=== PATIENT | female | born 1960 | race Caucasian/White ===

== ENCOUNTER 2021-06-02 16:53 | Emergency (ER) | payer MEDICARE ==
[~2021-06-02] VITALS: Ht 167.6 cm; Wt 65.0 kg
[2021-06-02] MEDS ORDERED: KETOROLAC 60MG/2ML VIAL IM ONE (18:30)
[2021-06-02] MEDS ORDERED: IBUP-2028 MT (18:36)
[2021-06-02 19:15] LABS: CLARITY URINE CLOUDY (CLEAR); COLOR URINE YELLOW (YELLOW); KETONES URINE NEGATIVE (NEGATIVE); LEUKOCYTE ESTERASE URINE 3+ (NEGATIVE); NITRITE URINE NEGATIVE (NEGATIVE); OCCULT BLOOD URINE NEGATIVE (NEGATIVE); PROTEIN URINE NEGATIVE (NEGATIVE); SPECIFIC GRAVITY URINE 1.017 (1.005-1.030); UROBILINOGEN URINE 0.2 E.U./dL (0.2-1.0)
[2021-06-02] MEDS ORDERED: CEPH500C2 MT (19:36)
[2021-06-02 19:54] VITALS: BP 132/88
== END 2021-06-02 19:56 | disposition home or self-care (01) ==
LOC: ER 16:53
DX: N39.0 Urinary tract infection, site not specified (principal); G62.9 Polyneuropathy, unspecified; M54.5 Low back pain
CPT/HCPCS: 72100; 81003; 82962; 93970; 96372; 99285; J1885

== ENCOUNTER 2022-12-05 14:21 | Emergency (ER) | payer MEDICARE, MEDICAID ==
[~2022-12-05] VITALS: Ht 162.6 cm; Wt 67.0 kg
[~2022-12-05 14:21] MED LIST: CEPH500C2 MT; IBUP-2028 MT
[2022-12-05 15:45] VITALS: BP 111/75
[2022-12-05] MEDS ORDERED: IBUPROFEN 600MG TABLET PO ONE (15:45)
[2022-12-05] MEDS ORDERED: CYCL10TA21 MT (16:33)
[2022-12-05] MEDS ORDERED: IBUP-2029 MT (16:33)
== END 2022-12-05 16:55 | disposition home or self-care (01) ==
LOC: ER 14:21
DX: R07.89 Other chest pain (principal); Z98.890 Other specified postprocedural states
CPT/HCPCS: 71046; 93005; 99283

== ENCOUNTER 2023-02-13 02:11 | Emergency (ER) | payer MEDICARE, MEDICAID ==
[~2023-02-13] VITALS: Ht 162.6 cm; Wt 64.0 kg
[~2023-02-13 02:11] MED LIST changes: +CYCL10TA21 MT; +IBUP-2029 MT
[2023-02-13] MEDS ORDERED: SODIUM CHLORIDE 0.9% 1,000 ML IV ONE (03:45)
[2023-02-13 04:23] LABS: BASOPHILS % 0.8 % (0.0-2.0); HEMATOCRIT. 34.5 % (36.0-48.0); HEMOGLOBIN. 11.7 g/dL (12.0-16.0); LYMPHOCYTES % 34.3 % (20.0-50.0); MEAN CORPUSCULAR HEMOGLOBIN 29.3 pg (28.0-32.0); MEAN CORPUSCULAR VOLUME 86.3 fL (81.0-99.0); MEAN PLATELET VOLUME 8.3 fl (7.4-10.4); MONOCYTES % 6.9 % (2.0-8.0); PLATELET 346 x1000/uL (130-400); RED CELL DISTRIBUTION WIDTH 14.2 % (11.6-14.6)
[2023-02-13 04:32] LABS: CHLORIDE 107 mEq/L (98-107)
[2023-02-13] MEDS ORDERED: IOHEXOL-350 100 ML BOTTLE ONE (06:08)
[2023-02-13 06:58] VITALS: BP 195/53
== END 2023-02-13 07:22 | disposition home or self-care (01) ==
LOC: ER 02:11
DX: R06.02 Shortness of breath (principal); Z88.6 Allergy status to analgesic agent
CPT/HCPCS: 36415; 71045; 71275; 80053; 83880; 84484; 85025; 85379; 93005; 96360; 99285; J7030; Q9967

== ENCOUNTER 2023-06-30 02:30 | Emergency (ER) | payer MEDICARE, MEDICAID ==
[~2023-06-30] VITALS: Ht 165.1 cm; Wt 60.0 kg
[2023-06-30 02:33] VITALS: O2SAT 97
[2023-06-30] MEDS ORDERED: IPRATROPIUM BROMIDE (0.02%) 0.5MG/2.5ML NEB HHN STA (03:41)
[2023-06-30] MEDS ORDERED: ALBUTEROL (0.083%) 2.5MG/3ML NEB HHN STA (03:41)
[2023-06-30] MEDS ORDERED: METHYLPREDNISOLONE SOD SUCC 125MG/2ML (ACT-O-VIAL) IV STA (03:41)
[2023-06-30] MEDS ORDERED: MAGNESIUM 2 G PREMIX 50 ML IV ONE (03:45)
[2023-06-30 04:00] VITALS: PULSE 92; RESP 20
[2023-06-30 04:20] LABS: BASOPHILS % 0.7 % (0.0-2.0); EOSINOPHILS % 1.3 % (0.0-5.0); HEMATOCRIT. 35.9 % (36.0-48.0); HEMOGLOBIN. 12.6 g/dL (12.0-16.0); LYMPHOCYTES % 28.8 % (20.0-50.0); MEAN CORPUSCULAR HEMOGLOBIN 30.2 pg (28.0-32.0); MEAN CORPUSCULAR VOLUME 86.2 fL (81.0-99.0); MEAN PLATELET VOLUME 7.7 fl (7.4-10.4); NEUTROPHILS % 62.2 % (40.0-76.0); PLATELET 349 x1000/uL (130-400); RED BLOOD CELL COUNT 4.16 mill/uL (4.2-5.4); RED CELL DISTRIBUTION WIDTH 14.2 % (11.6-14.6)
[2023-06-30 04:30] LABS: CHLORIDE 110 mEq/L (98-107); INDEX HEMOLYSI 4 (1-3); INDEX ICTERIC 1 (1-4); INDEX LIPEMIC 1 (1-3); POTASSIUM 3.5 mEq/L (3.5-5.1); SODIUM 138 mEq/L (136-145)
[2023-06-30 04:39] LABS: ALANINE AMINOTRANSFERASE 15 IU/L (13-61); ALBUMIN 3.3 g/dL (3.4-5.0); ASPARTATE AMINOTRANSFERASE 23 IU/L (15-37); BILIRUBIN TOTAL 0.4 mg/dL (0.1-1.0); CALCIUM 8.6 mg/dL (8.5-10.1); CARBON DIOXIDE 27 mEq/L (21-32); CREATININE 0.7 mg/dL (0.6-1.3); GLUCOSE 79 mg/dL (70-105); NT PRO B-TYPE NATRIURETIC PEP 166 pg/mL (5-125); TROPONIN I HIGH SENSITIVITY 4 ng/L (<54); UREA NITROGEN BLOOD 6 mg/dL (7-21)
[2023-06-30] MEDS ORDERED: P20 MT (05:23)
[2023-06-30 06:00] VITALS: BP 112/82; PULSE 73; RESP 16; TEMP 98.2
== END 2023-06-30 06:16 | disposition home or self-care (01) ==
LOC: ER 02:30
DX: J44.9 Chronic obstructive pulmonary disease, unspecified (principal); Z88.2 Allergy status to sulfonamides
CPT/HCPCS: 99285; 96365; 71045; 96366; 96375; 80053; 83880; 85025; 84484; 36415; 94640; 93005; J3475; J2930

== ENCOUNTER 2023-11-23 11:49 | Emergency (ER) | payer MEDICARE, MEDICAID ==
[~2023-11-23] VITALS: Ht 162.6 cm; Wt 65.0 kg
[~2023-11-23 11:49] MED LIST changes: +P20 MT
[2023-11-23 12:00] VITALS: BP 131/80; PULSE 88; RESP 18; O2SAT 98
[2023-11-23] MEDS ORDERED: ACETAMINOPHEN 325MG TABLET PO ONE (12:30)
[2023-11-23 12:52] VITALS: TEMP 98
== END 2023-11-23 14:57 | disposition home or self-care (01) ==
LOC: ER 14:49
DX: S99.921A Unspecified injury of right foot, initial encounter (principal); X58.XXXA Exposure to other specified factors, initial encounter; Y93.89 Activity, other specified; Y92.89 Other specified places as the place of occurrence of the external cause; Y99.8 Other external cause status
CPT/HCPCS: 73630; 99283

== ENCOUNTER 2024-02-04 11:00 | Emergency (ER) | payer MEDICARE, MEDICAID ==
[~2024-02-04] VITALS: Ht 162.6 cm; Wt 95.0 kg
[2024-02-04 11:06] VITALS: TEMP 97.6; O2SAT 98
[2024-02-04] MEDS: MORPHINE SULFATE 4 MG/ML INJ (FOR IV/IM USE) IV ONE (12:10)
[2024-02-04] MEDS: SODIUM CHLORIDE 0.9% 1,000 ML IV ONE (12:13)
[2024-02-04] MEDS: ONDANSETRON HCL 4MG/2ML INJ IV ONE (12:13)
[2024-02-04] MEDS: METHOCARBAMOL 500MG TABLET PO ONE (14:34)
[2024-02-04] MEDS ORDERED: IBUP-2029 MT (15:28)
[2024-02-04] MEDS ORDERED: KETOROLAC 30MG/ML VIAL IV ONE (15:30)
[2024-02-04] MEDS ORDERED: TRAM50TA3 MT (15:50)
[2024-02-04] MEDS: MIDAZOLAM HCL 2 MG/2 ML VIAL IV ONE ×2 (16:15→17:35)
[2024-02-04] MEDS ORDERED: MORPHINE SULFATE 4 MG/ML INJ (FOR IV/IM USE) IV ONE (16:15)
[2024-02-04] MEDS: KETOROLAC 30MG/ML VIAL IV NR (20:30)
[2024-02-04 21:00] VITALS: BP 114/71; PULSE 76; RESP 14
== END 2024-02-04 21:02 | disposition home or self-care (01) ==
LOC: ER 11:54
DX: S42.461A Displaced fracture of medial condyle of right humerus, initial encounter for closed fracture (principal); J44.9 Chronic obstructive pulmonary disease, unspecified; Z79.899 Other long term (current) drug therapy; W18.39XA Other fall on same level, initial encounter; Y93.89 Activity, other specified; Y92.89 Other specified places as the place of occurrence of the external cause; Y99.8 Other external cause status
CPT/HCPCS: 99285; 96374; 29105; 96375; 73200; 73030; 73080; 96376; J1885; J2250; J2405; J2270; J7030; A4565

== ENCOUNTER 2025-02-23 00:18 | Emergency (ER) | payer MEDICARE, MEDICAID ==
[~2025-02-23] VITALS: Ht 162.6 cm; Wt 63.0 kg
[~2025-02-23 00:18] MED LIST changes: +TRAM50TA3 MT
[2025-02-23 00:23] VITALS: O2SAT 98
[2025-02-23 00:29] VITALS: TEMP 36.7; O2SAT 97
[2025-02-23 00:52] LABS: BASOPHILS % 0.7 % (0.0-2.0); EOSINOPHILS % 3.2 % (0.0-5.0); HEMATOCRIT. 39.4 % (36.0-48.0); HEMOGLOBIN. 13.4 g/dL (12.0-16.0); LYMPHOCYTES % 22.8 % (20.0-50.0); MEAN CORPUSCULAR HEMOGLOBIN 30.3 pg (28.0-32.0); MEAN CORPUSCULAR VOLUME 89.1 fL (81.0-99.0); MEAN PLATELET VOLUME 8.2 fl (7.4-10.4); MONOCYTES % 6.1 % (2.0-8.0); NEUTROPHILS % 67.2 % (40.0-76.0); PLATELET 317 x1000/uL (130-400); RED BLOOD CELL COUNT 4.42 mill/uL (4.2-5.4); RED CELL DISTRIBUTION WIDTH 14.1 % (11.6-14.6); WHITE BLOOD COUNT 10.2 x1000/uL (4.5-11.0)
[2025-02-23 01:02] LABS: CHLORIDE 106 mEq/L (98-107); POTASSIUM 4.1 mEq/L (3.5-5.1); SODIUM 141 mEq/L (136-145)
[2025-02-23 01:03] LABS: CARBON DIOXIDE 30 mEq/L (21-32)
[2025-02-23 01:04] LABS: CALCIUM 10.7 mg/dL (8.7-10.4)
[2025-02-23 01:09] LABS: CREATININE 0.9 mg/dL (0.6-1.0); GLUCOSE 103 mg/dL (70-105); UREA NITROGEN BLOOD 18 mg/dL (9-23)
[2025-02-23 01:16] LABS: TROPONIN I HIGH SENSITIVITY < 4 ng/L (3.0-34)
[2025-02-23] MEDS: METHOCARBAMOL 500MG TABLET PO NR (01:38)
[2025-02-23 01:44] VITALS: BP 177/77; PULSE 77; RESP 18
[2025-02-23] MEDS: KETOROLAC 30MG/ML VIAL IM NR (01:44)
[2025-02-23] MEDS ORDERED: METH-653 MT (02:19)
[2025-02-23] MEDS ORDERED: LIDO700A15 TP (02:19)
[2025-02-23] MEDS ORDERED: IBUP-2029 MT (02:19)
== END 2025-02-23 03:27 | disposition home or self-care (01) ==
LOC: ER 00:18
DX: M54.50 Low back pain, unspecified (principal); J44.89 Other specified chronic obstructive pulmonary disease; F19.90 Other psychoactive substance use, unspecified, uncomplicated; Z88.2 Allergy status to sulfonamides; Z79.899 Other long term (current) drug therapy
CPT/HCPCS: 99285; 72131; 71045; 80048; 85025; 84484; 36415; 93005; 96372; J1885